=== PATIENT | male | born 1990 | race Caucasian/White ===

== ENCOUNTER 2021-11-07 14:31 | Emergency (ER) | payer SELFPAY ==
[2021-11-07 14:33] VITALS: BP 146/98; PULSE 82; RESP 18; TEMP 36.4; O2SAT 100
[2021-11-07 15:07] LABS: Basophils Absolute Auto 0.1 K/mm3 (0.0-0.1); Basophils Percent Auto 0.7 % (0.2-1.2); Eosinophils Absolute Auto 0.1 K/mm3 (0-0.3); Eosinophils Percent Auto 0.9 % (0-4.4); Hematocrit 49.9 % (42.0-52.0); Hemoglobin 17.2 g/dL (14.0-18.0); Immature Granulocyte Absolute 0.15 K/mm3 (0.00-0.031); Immature Granulocyte Percent A 2.2 % (0-0.5); Lymphocytes Percent Auto 28.3 % (18.3-44.2); Mean Corpuscular HGB Conc 34.5 g/dl (32-36); Mean Corpuscular Hemoglobin 29.6 pg (26-34); Mean Corpuscular Volume 85.9 fl (80-100); Mean Platelet Volume 9.6 fl (7.4-10.4); Monocytes Absolute Auto 0.8 K/mm3 (0.1-0.6); Monocytes Percent Auto 11.2 % (2.6-8.5); Neutrophils Absolute Auto 3.8 K/mm3 (1.3-6.7); Neutrophils Percent Auto 56.7 % (45.5-73.1); Platelet Count Result 232 k/mm3 (150-375); Red Blood Count 5.81 M/mm3 (4.6-6.20); Red Cell Distribution Width 13.2 % (11.5-14.5); White Blood Count 6.7 K/mm3 (4.5-10.0)
--- NOTE | 2021-11-07 15:13 | ED.GENADULT ---
HPI - General Adult General Chief complaint: Abdominal Pain Stated complaint: abd pain Time Seen by Provider: 11/07/21 14:37 History of Present Illness HPI narrative: 30-year-old male presenting the emergency department for evaluation of epigastric pain. Patient states over the last few months he has had intermittent pain similar to this. Patient states Monday he had a few hours of pain that did resolve. Patient states this morning he had recurrence of the pain again. Patient describes an epigastric tightness. Patient states the pain lasted a few hours and then resolved. Patient denies any prior cardiac history. Patient denies any prior history of GI issues. Patient states he has not had any surgeries on his abdomen. Patient reports that he did attempt to take some Tums for this and it was initially helping but has not been helping over the last few days. Related Data Allergies Allergy/AdvReac Type Severity Reaction Status Date / Time No Known Allergies Allergy Verified 11/07/21 14:35 Review of Systems Review of Systems: CONSTITUTIONAL: Denies fever, chills, or sweats. EYES: Denies visual changes, redness, or discharge. ENT: Denies rhinorrhea, congestion, sore throat, or otalgia. CARDIOVASCULAR: Denies chest pain, palpitations, or edema. RESPIRATORY: Denies cough or dyspnea. GASTROINTESTINAL: See HPI GENITOURINARY: Denies dysuria or hematuria. SKIN: Denies rash or itching. MUSCULOSKELETAL: Denies back pain, joint pain, or myalgia. NEUROLOGIC: Denies headache, numbness, or weakness. Exam Narrative: APPEARANCE: Well appearing, no pain, no distress, well-nourished. HEAD: normocephalic, atraumatic. EYES: PERRLA/EOMI, conjunctivae clear. NOSE: Normal no drainage THROAT: Pharynx clear, no exudate. NECK: Supple. No adenopathy, no masses. RESPIRATORY: Airway patent, respirations nonlabored. Clear to auscultation bilaterally, no rales, rhonchi, wheezing. CARDIOVASCULAR: Regular rate and rhythm without murmurs rubs or gallops. ABDOMINAL: Soft, nontender, nondistended, normal bowel sounds. No reproducible epigastric tenderness to palpation MUSCULOSKELETAL: Moves all extremities. Strength/ROM intact, No edema, No calf tenderness. NEURO: Alert. Cranial nerves II through XII intact. Grossly intact SKIN: Warm, dry. Normal Color Course Course Emergency Course: Patient was updated on the results of the work-up. Patient was encouraged of close follow-up with his primary care physician and with GI. All questions and concerns were addressed. Vital Signs Vital signs: Vital Signs Temperature 97.6 F 11/07/21 14:33 Pulse Rate 82 11/07/21 14:33 Respiratory Rate 18 11/07/21 14:33 Blood Pressure 146/98 H 11/07/21 14:33 Pulse Oximetry 100 11/07/21 14:33 Oxygen Delivery Room Air 11/07/21 14:33 Temperature 97.6 F 11/07/21 14:33 Pulse Rate 82 11/07/21 16:35 Respiratory Rate 16 11/07/21 16:35 Blood Pressure 126/83 11/07/21 16:35 Pulse Oximetry 95 11/07/21 16:35 Oxygen Delivery Room Air 11/07/21 14:33 Medical Decision Making Vital Signs Vital Signs: Vital Signs Temperature 97.6 F 11/07/21 14:33 Pulse Rate 82 11/07/21 14:33 Respiratory Rate 18 11/07/21 14:33 Blood Pressure 146/98 H 11/07/21 14:33 Pulse Oximetry 100 11/07/21 14:33 Oxygen Delivery Room Air 11/07/21 14:33 Temperature 97.6 F 11/07/21 14:33 Pulse Rate 82 11/07/21 16:35 Respiratory Rate 16 11/07/21 16:35 Blood Pressure 126/83 11/07/21 16:35 Pulse Oximetry 95 11/07/21 16:35 Oxygen Delivery Room Air 11/07/21 14:33 Lab Data Lab results reviewed: Yes I reviewed the patient's lab results. Result diagrams: 11/07/21 14:48 11/07/21 15:28 Labs: Lab Results 11/07/21 11/07/21 11/07/21 Range/Units 14:48 14:48 15:28 WBC 6.7 (4.5-10.0) K/mm3 RBC 5.81 (4.6-6.20) M/mm3 Hgb 17.2 (14.0-18.0) g/dL Hct 49.9 (42.0-52.0) % MCV 85.9 (80-10
[2021-11-07 15:26] LABS: Lactic Acid Reflex 1.6 mmol/L (0.7-2.0)
[2021-11-07 15:55] LABS: Alanine Aminotransferase 366 U/L (6-50); Albumin Level 4.5 g/dL (3.5-5.1); Alkaline Phosphatase 166 U/L (38-126); Anion Gap 9 mmol/L (8-16); Aspartate Amino Transferase 300 U/L (17-59); Bilirubin,Total 4.3 mg/dL (0.2-1.3); Blood Urea Nitrogen 9 mg/dL (9-20); Calcium 9.7 mg/dL (8.4-10.2); Carbon Dioxide 27 mmol/L (22-30); Chloride 102 mmol/L (98-107); Estimated CRCL calculation 86 ml/min; Estimated Glomerular Filt Rate > 60; Glucose 110 mg/dL (65-110); Lipase 115 U/L (23-300); Potassium 3.7 mmol/L (3.4-5.0); Sodium 138 mmol/L (137-145)
[2021-11-07 16:35] VITALS: BP 126/83; PULSE 82; RESP 16; O2SAT 95
== END 2021-11-07 16:36 | disposition home or self-care (01) ==
PROVIDERS: Emergency Provider Emergency Medicine
DX: R10.13 Epigastric pain (principal)
CPT/HCPCS: 36415; 80053; 83605; 83690; 85025; 99283

== ENCOUNTER 2022-05-19 18:20 | Inpatient (IN) | payer SELFPAY ==
--- NOTE | ~2022-05-19 | MR_ITS ---
EXAMINATION: MR MRCP wo/w con/w 3D wo ind DATE: 05/20/2022 12:17 INDICATION: Gallstone pancreatitis. TECHNIQUE: Magnetic resonance imaging (MRI) of the abdomen was performed without and with 20 mL Multi Jose intravenous contrast. Sequences included coronal T2-weighted FS FSE, coronal T2-weighted FSE, a xial T1-weighted LAVA, coronal FS FIESTA, axial dual-echo T1-weighted SPGR, coronal lava-FLEX, sagitt al T2-weighted FSE, axial T2-weighted FSE, and axial DWI. Thick-slab T2-weighted FSE images were obta ined for magnetic resonance cholangiopancreatography (MRCP). Maximum intensity projection 3-D reconst ructions of the volumetric data were created by the technologist. Postcontrast sequences included cor onal LAVA-flex and time course of axial T1-weighted LAVA. COMPARISON: CT abdomen and pelvis 05/19/2022 FINDINGS: ABDOMEN MRI: There is a 5 mm cyst in the liver. The spleen is normal. The gallbladder is normal in si ze and contains gallstones. There is fat stranding around the pancreas and in the bilateral retroperi toneum, consistent with acute interstitial pancreatitis. The pancreas enhances throughout. The adrena l glands and kidneys are normal. There are no dilated loops of bowel. There are no pathologically enl arged lymph nodes. There is no free intraperitoneal fluid. ABDOMEN MRCP: The common duct is normal and measures 6 mm. No choledocholithiasis. IMPRESSION: 1. No choledocholithiasis. 2. Acute interstitial pancreatitis. 3. Cholelithiasis. Reviewed, dictated and finalized at location A.
--- NOTE | ~2022-05-19 | XR_ITS ---
EXAMINATION: XR cholangiogram surg 1st inj DATE: 05/21/2022 09:32 INDICATION: Laparoscopic cholangiogram TECHNIQUE: 208 fluoroscopic images of the right upper quadrant were obtained during intraoperative ch olangiography performed by the surgeon. I was not present in the operating room. Fluoroscopy exposure time was 29.6. COMPARISON: None. FINDINGS: Fluoroscopic images demonstrate mild enlargement of the common bile duct and mild stricturi ng of the distal common bile duct with slow flow contrast material into the duodenum. No stones are i dentified. Finding likely reflects pancreatic inflammation. IMPRESSION: 1. Mild enlargement of the common bile duct with probable pancreatic inflammatory change resulting in slow flow of contrast from the distal common bile duct. Reviewed, dictated and finalized at location A. IMPRESSION: 1. Mild enlargement of the common bile duct with probable pancreatic inflammato ry change resulting in slow flow of contrast from the distal common bile duct.
--- NOTE | ~2022-05-19 | US_ITS ---
Limited Abdominal Sonogram: Real-time sonographic imaging of the right upper quadrant was performed. Clinical History: Abnormal LFTs Findings: The liver appears normal with no evidence of mass lesion or bile duct dilatation. Main por jaime vein demonstrates normal direction of flow. The gallbladder is partially distended, with probable small echogenic stones. The common bile duct measures 3 mm. The visualized pancreas, aorta, and IVC are unremarkable. Impression: Cholelithiasis. Reviewed, dictated and finalized at location M. Impression: Cholelithiasis.
--- NOTE | ~2022-05-19 | CT_ITS ---
EXAMINATION: CT abdomen pelvis w con INDICATION: Epigastric pain TECHNIQUE: Computed tomographic images of the abdomen and pelvis were obtained after the administrati on of 100 cc of Omnipaque 350 intravenous contrast. The dose-length product (DLP) was 1156.92 mGy-cm. Automated exposure control and iterative reconstruction technique were employed. COMPARISON: None available FINDINGS: Minimal dependent atelectasis is present in the lung bases. The heart size is normal. The l iver, spleen, and adrenal glands are normal. There is a moderate amount of peripancreatic fluid which extends into the anterior pararenal spaces and inferiorly in the retroperitoneum. There is mild wall thickening of the gallbladder. The kidneys are unremarkable. No pathologically enlarged abdominal or pelvic lymph nodes are identified. No free intraperitoneal gas or evidence of bowel obstruction. The re is a tiny umbilical hernia containing fat. IMPRESSION: 1. Acute pancreatitis, likely interstitial edematous, with acute peripancreatic fluid collection. 2. Mild wall thickening of the gallbladder, likely reactive. Reviewed, dictated and finalized at location F.
[2022-05-19 18:59] VITALS: BP 137/94; PULSE 86; RESP 18; TEMP 36.6; O2SAT 98
[2022-05-19 19:34] LABS: Basophils Percent Auto 0.4 % (0.2-1.2); Eosinophils Percent Auto 0.2 % (0-4.4); Hematocrit 54.4 % (42.0-52.0); Hemoglobin 18.1 g/dL (14.0-18.0); Immature Granulocyte Absolute 0.15 K/mm3 (0.00-0.031); Immature Granulocyte Percent A 1.5 % (0-0.5); Lymphocytes Absolute Auto 1.07 K/mm3 (0.9-3.2); Lymphocytes Percent Auto 10.7 % (18.3-44.2); Mean Corpuscular HGB Conc 33.3 g/dl (32-36); Mean Corpuscular Hemoglobin 29.3 pg (26-34); Mean Corpuscular Volume 88.2 fl (80-100); Mean Platelet Volume 9.7 fl (7.4-10.4); Monocytes Absolute Auto 0.8 K/mm3 (0.1-0.6); Monocytes Percent Auto 8.1 % (2.6-8.5); Neutrophils Absolute Auto 7.9 K/mm3 (1.3-6.7); Neutrophils Percent Auto 79.1 % (45.5-73.1); Platelet Count Result 229 k/mm3 (150-375); Red Blood Count 6.17 M/mm3 (4.6-6.20); Red Cell Distribution Width 13.2 % (11.5-14.5)
[2022-05-19 21:24] LABS: Alanine Aminotransferase 519 U/L (6-50); Alkaline Phosphatase 201 U/L (38-126); Anion Gap 12 mmol/L (8-16); Aspartate Amino Transferase 192 U/L (17-59); Blood Urea Nitrogen 9 mg/dL (9-20); Calcium 9.7 mg/dL (8.4-10.2); Carbon Dioxide 25 mmol/L (22-30); Chloride 100 mmol/L (98-107); Estimated CRCL calculation 116 ml/min; Estimated Glomerular Filt Rate > 60; Glucose 92 mg/dL (65-110); Potassium 3.8 mmol/L (3.4-5.0); Sodium 137 mmol/L (137-145)
[2022-05-19 21:34] VITALS: BP 128/83; PULSE 93; RESP 19; O2SAT 97
[2022-05-19 22:25] LABS: Lipase 5080 U/L (23-300)
[2022-05-19] MEDS: SODIUM CHLORIDE 0.9% IV 1,000 ML 999 ML IV CONT (22:49)
[2022-05-19] MEDS: MORPHINE SULFATE (*CRX) 4 MG/ML INJ IV PUSH (22:49)
[2022-05-19] MEDS: ONDANSETRON INJ 4 MG/2 ML VIAL IV PUSH (22:49)
--- NOTE | 2022-05-19 23:15 | ED.ABDPAIN ---
HPI - Abdominal Pain General Chief Complaint: Abdominal Pain Stated Complaint: abd pain Time Seen by Provider: 05/19/22 21:26 Source: patient Mode of arrival: ambulatory Limitations: no limitations History of Present Illness HPI narrative: Patient is a 31-year-old male who presents to the ED with report of epigastric abdominal pain. Patient reports having pain for the last couple of days. He reports having similar pain in the past but states it resolved on its own. Pain does not radiate. He has had nausea and vomiting over the last 2 days. He states he initially feels somewhat better after vomiting, but then the pain returns. He has tried taking Tylenol and acid reflux medications without relief. Denies significant aggravating factors. He did eat yesterday, but denied significant worsening after eating. Has not had anything to eat today. Denies any fever, diarrhea, constipation, urinary symptoms. Related Data Allergies Allergy/AdvReac Type Severity Reaction Status Date / Time No Known Allergies Allergy Verified 11/07/21 14:35 Review of Systems Review of Systems: CONSTITUTIONAL: Denies fever, chills, or sweats. CARDIOVASCULAR: Denies chest pain. RESPIRATORY: Denies dyspnea. GASTROINTESTINAL: See HPI. GENITOURINARY: Denies dysuria or hematuria. All systems reviewed & are unremarkable except as noted in HPI and below PMFSH Past Medical History Medical History (Updated 05/19/22 @ 23:26 by Melina Branch PA-C) No pertinent past medical history Surgical History Surgical History (Updated 05/19/22 @ 23:19 by Melina Branch PA-C) No pertinent past surgical history Social History Social History (Updated 05/19/22 @ 23:46 by Melina Branch PA-C) Smoking status: Never smoker Alcohol intake: current Alcohol use details: occasional - social, last drank 2 weeks ago Substance use: never Exam Narrative: GENERAL: Well appearing, obese, non-toxic, in no acute distress. HEAD: Normocephalic, atraumatic. NECK: Supple. No adenopathy, no masses. RESPIRATORY: Airway patent, respirations nonlabored. Clear to auscultation bilaterally, no rales, rhonchi, wheezing. CARDIOVASCULAR: Regular rate and rhythm without murmurs, rubs, or gallops. Radial pulses 2+ and equal bilaterally. ABDOMINAL: Soft, tenderness to palpation in the epigastric region, periumbilical region, nondistended, no hepatosplenomegaly. Normoactive BS. MUSCULOSKELETAL: Moves all extremities. Strength/ROM intact without gross deformities. SKIN: Warm, dry, normal color. No rashes. NEURO: A&O X3. Speech clear. Cranial nerves II-XII grossly intact. Steady gait. No ataxic movements. PSYCHIATRIC: Appropriate mood and affect. Normal interaction. Course Vital Signs Vital signs: Vital Signs Temperature 97.8 F 05/19/22 18:59 Pulse Rate 86 05/19/22 18:59 Respiratory Rate 18 05/19/22 18:59 Blood Pressure 137/94 H 05/19/22 18:59 Pulse Oximetry 98 05/19/22 18:59 Oxygen Delivery Room Air 05/19/22 18:59 Temperature 97.8 F 05/19/22 18:59 Pulse Rate 103 H 05/19/22 23:28 Respiratory Rate 18 05/19/22 23:28 Blood Pressure 135/83 05/19/22 23:28 Pulse Oximetry 97 05/19/22 23:28 Oxygen Delivery Room Air 05/19/22 18:59 MDM - Abdominal Pain MDM Narrative Medical decision making narrative: Patient presented to ED with 2-day history of epigastric abdominal pain, nausea, vomiting. Patient's vital stable upon arrival. Afebrile. CBC with white blood cell count of 10. Hgb 18.1. Has been similarly elevated in the past. Likely hemoconcentration. Fluids started. CMP with elevated bilirubin, elevated transaminases and alk phos. These do appear to have been elevated in Nov 2021 to similar levels, at which time patient was reporting epigastric pain as well. Lipase at that time was normal. Lipase elevated today to just over 5000. CT scan consistent with acute pancreatitis with peripancreatic fluid collection developing.
[2022-05-19 23:28] VITALS: BP 135/83; PULSE 103; RESP 18; O2SAT 97
--- NOTE | 2022-05-20 00:34 | ADMGEN ---
This patient, Donte Lima, was admitted to 3 [facility] Surg Room 301-01. Patient/family oriented to hospital policies and general routines including ID bracelet, bed and alarms, visiting hours, pain management, procedures, bathroom and other care routines, personal items, smoking policy, room service/diet, and visiting hours. Information on how to activate the Rapid Response Team has been discussed. Patient/Family are encouraged to report perceived risks to care and to ask questions if they do not understand what they are told or what they should do.
[2022-05-20 00:40] VITALS: PULSE 89; RESP 16; O2SAT 96
[2022-05-20 00:48] LABS: Triglycerides 160 mg/dL (<150)
[2022-05-20 01:00] VITALS: BP 123/79; PULSE 89; RESP 16; TEMP 36.4; O2SAT 96; BMI 33.3
[2022-05-20] MEDS: SODIUM CHLORIDE 0.9% IV 1,000 ML 200 ML IV CONT ×4 (01:11→21:39)
[2022-05-20 01:17] LABS: Appearance Urine Clear (Clear); Bacteria Urine None Seen /hpf; Bilirubin Urine 2+ (Negative); Blood Urine Negative (Negative); Color Urine Dark Yellow (Yellow); Glucose Urine UA Negative (Negative); Ketones Urine 4+ mg/dL (Negative); Leukocyte Esterase Ur Trace LEU/UL (Negative); Nitrate Urine Negative (Negative); Non Pathogenic Casts 0-2; Protein Urine Trace mg/dL (Negative); RBC Urine 0-2 /hpf (0-2); Squamous Epithelial Cell Urine None seen /hpf (Few); WBC Urine 0-5 /hpf; pH Urine 5.5 (5.0-9.0)
[2022-05-20 01:46] LABS: Specific Grav Ur 1.055 (1.001-1.035)
[2022-05-20 01:47] LABS: Add Urine Microscopic? YES
[2022-05-20 06:00] VITALS: BP 143/80; PULSE 88; RESP 20; TEMP 35.9; O2SAT 94
[2022-05-20] MEDS: PANTOPRAZOLE SODIUM IV 40 MG VIAL IV PUSH (08:44)
--- NOTE | 2022-05-20 08:44 | WPDGICN ---
Assessment and Plan Assessment and plan (1) Acute pancreatitis: Qualifiers: Acute pancreatitis complication: unspecified Pancreatitis type: unspecified pancreatitis type Qualified Code(s): K85.90 - Acute pancreatitis without necrosis or infection, unspecified Code(s): K85.90 - Acute pancreatitis without necrosis or infection, unspecified Status: Acute Assessment and Plan: Patient with acute pancreatitis. Imaging studies suggest this is interstitial pancreatitis. Ultrasound confirms gallstones which raises the question that this may be the etiology. Plan for conservative management. Patient will initially be NPO with pain control gradually increasing diet is pain and labs improve. Because of elevated LFTs an MRCP will be obtained. Surgery for eventual cholecystectomy is advised. (2) Cholelithiasis: Code(s): K80.20 - Calculus of gallbladder without cholecystitis without obstruction Status: Acute Assessment and Plan: Gallstones identified on ultrasound imaging. Suggest that this may be the etiology for patient's pancreatitis. Will obtain surgery consult. GI Consult Note Consult date/time: 05/20/22 08:44 Reason for consult: Acute pancreatitis. HPI: Donte Lima is a 31 year old male I am asked to see at the request of the hospitalist service because of pancreatitis. Patient reports he developed mid epigastric pain that began on Monday. Because of persistent pain he presented to the emergency room. He has received some pain relief with pain medications. Patient had only mild nausea and vomiting on presentation. Patient has never had pancreatitis before. He admits only occasional social alcohol intake but never to excess. He denies any prior known history of gallstones. Family history is noncontributory. Review of Systems Review of Systems: Review of systems noncontributory. [facility] Past Medical History Medical History (Updated 05/20/22 @ 08:46 by Jb Matthews MD) No pertinent past medical history Surgical History Surgical History (Updated 05/19/22 @ 23:19 by Melina Branch PA-C) No pertinent past surgical history Social History Social History (Updated 05/19/22 @ 23:46 by Melina Branch PA-C) Smoking status: Never smoker Alcohol intake: current Drinks per week: 1 Alcohol use details: occasional - social, last drank 2 weeks ago Substance use: current Lack of Transportation: No Lack of Food: Never True Current Housing: I Have Housing Concerned About Future Housing: No Difficulty Paying Gas/Electric Bills: No Difficulty Paying for Meds: No Currently Unemployed: No Education: High School Diploma/GED Difficulty w/ Childcare or Family Care: No Spiritual care concerns: No Meds Home Medications and Allergies Home Medications Medication Instructions Recorded Confirmed Type omeprazole magnesium 20 mg 20 mg PO DAILY #14 tabs 11/07/21 05/20/22 Rx tablet,delayed release (Prilosec OTC) Allergies Allergy/AdvReac Type Severity Reaction Status Date / Time No Known Allergies Allergy Verified 11/07/21 14:35 Vital Signs Vital Signs - 24 hr 05/19/22 18:59 05/19/22 21:34 05/19/22 23:28 Temperature 97.8 F Pulse Rate 86 93 103 H Respiratory Rate 18 19 18 Blood Pressure 137/94 H 128/83 135/83 Pulse Oximetry 98 97 97 Oxygen Delivery Room Air 05/20/22 01:00 05/20/22 00:40 05/20/22 06:00 Temperature 97.6 F 96.6 F L Pulse Rate 89 89 88 Respiratory Rate 16 16 20 Blood Pressure 123/79 143/80 H Pulse Oximetry 96 96 94 Oxygen Delivery Room Air Exam Narrative: Physical exam reveals patient to be alert. Vital signs stable. HEENT exam is unremarkable. Patient is anicteric. Lungs are clear to auscultation and percussion. Heart is without murmur or extra sounds. Abdomen bowel sounds are present soft only minimal epigastric discomfort noted no organomegaly or m
--- NOTE | 2022-05-20 10:21 | PM.IMHP ---
H&P: HPI History of Present Illness Date/Time: 05/20/22 10:21 Chief Complaint: Abdominal pain Narrative: Donte Lima is a 31 year old male who is being admitted for acute pancreatitis.? Patient reports he developed mid epigastric pain that began on Monday.? Because of persistent pain he presented to the emergency room.? He has received some pain relief with pain medications.? Patient had only mild nausea and vomiting on presentation.? Patient has never had pancreatitis before.? He admits only occasional social alcohol intake but never to excess.? He denies any prior known history of gallstones. LFTs are elevated along with lipase. Review of Systems Review of Systems: CONSTITUTIONAL: Denies fever, chills, or sweats. CARDIOVASCULAR: Denies chest pain. RESPIRATORY: Denies dyspnea. GASTROINTESTINAL: See HPI. GENITOURINARY: Denies dysuria or hematuria. All systems reviewed & are unremarkable except as noted in HPI and below PMFSH Past Medical History Medical History No pertinent past medical history Surgical History Surgical History No pertinent past surgical history Social History Social History Smoking status: Never smoker Alcohol intake: current Drinks per week: 1 Alcohol use details: occasional - social, last drank 2 weeks ago Substance use: current Lack of Transportation: No Lack of Food: Never True Current Housing: I Have Housing Concerned About Future Housing: No Difficulty Paying Gas/Electric Bills: No Difficulty Paying for Meds: No Currently Unemployed: No Education: High School Diploma/GED Difficulty w/ Childcare or Family Care: No Spiritual care concerns: No Meds Home Medications and Allergies Home Medications Medication Instructions Recorded Confirmed Type omeprazole magnesium 20 mg 20 mg PO DAILY #14 tabs 11/07/21 05/20/22 Rx tablet,delayed release (Prilosec OTC) Allergies Allergy/AdvReac Type Severity Reaction Status Date / Time No Known Allergies Allergy Verified 11/07/21 14:35 Vital Signs Vital Signs - 24 hr 05/19/22 18:59 05/19/22 21:34 05/19/22 23:28 Temperature 97.8 F Pulse Rate 86 93 103 H Respiratory Rate 18 19 18 Blood Pressure 137/94 H 128/83 135/83 Pulse Oximetry 98 97 97 Oxygen Delivery Room Air 05/20/22 01:00 05/20/22 00:40 05/20/22 06:00 Temperature 97.6 F 96.6 F L Pulse Rate 89 89 88 Respiratory Rate 16 16 20 Blood Pressure 123/79 143/80 H Pulse Oximetry 96 96 94 Oxygen Delivery Room Air 05/20/22 08:00 Temperature Pulse Rate Respiratory Rate Blood Pressure Pulse Oximetry Oxygen Delivery Room Air Exam Narrative: GENERAL: Well appearing, obese, non-toxic, in no acute distress. HEAD: Normocephalic, atraumatic. NECK: Supple. No adenopathy, no masses. RESPIRATORY: Airway patent, respirations nonlabored. Clear to auscultation bilaterally, no rales, rhonchi, wheezing. CARDIOVASCULAR: Regular rate and rhythm without murmurs, rubs, or gallops. Radial pulses 2+ and equal bilaterally. ABDOMINAL: Soft, tenderness to palpation in the epigastric region, periumbilical region, nondistended, no hepatosplenomegaly. Normoactive BS. MUSCULOSKELETAL: Moves all extremities. Strength/ROM intact without gross deformities. SKIN: Warm, dry, normal color. No rashes. NEURO: A&O X3. Speech clear. Cranial nerves II-XII grossly intact. Steady gait. No ataxic movements. PSYCHIATRIC: Appropriate mood and affect. Normal interaction. H&P: Results Labs Labs: Short CBC 05/19/22 Range/Units 19:07 WBC 10.0 (4.5-10.0) K/mm3 Hgb 18.1 H (14.0-18.0) g/dL Hct 54.4 H (42.0-52.0) % Plt Count 229 (150-375) k/mm3 [facility] 05/19/22 19:07 Sodium 137 Potassium 3.8 Chloride 100 Carbon Dioxide 25 BUN 9 Creatinine 1.00 Glucose 92 C
[2022-05-20 10:23] VITALS: BP 122/81; PULSE 99; RESP 16; TEMP 36.2; O2SAT 95
--- NOTE | 2022-05-20 13:05 | PM.CNGS ---
Assessment and Plan Assessment and plan (1) Cholelithiasis: Code(s): K80.20 - Calculus of gallbladder without cholecystitis without obstruction Status: Acute Assessment and Plan: I have reviewed the CT and MRI and discussed the findings with the patient. He has evidence of acute pancreatitis likely related to gallstones. His MRI shows no evidence of choledocholithiasis. His liver enzymes were elevated but clinically he is already showing signs of improvement. Have discussed that proceeding with laparoscopic cholecystectomy during this hospitalization would be recommended to prevent recurrent episodes of pancreatitis. I would recommend proceeding with laparoscopic cholecystectomy with intraoperative cholangiogram, possible open. Since he is already feeling better and is NPO, could possibly proceed with surgery today or tomorrow depending on OR schedule. I have discussed the procedure, risks, benefits, and alternatives with the patient. Questions were answered. (2) Acute pancreatitis: Qualifiers: Acute pancreatitis complication: unspecified Pancreatitis type: unspecified pancreatitis type Qualified Code(s): K85.90 - Acute pancreatitis without necrosis or infection, unspecified Code(s): K85.90 - Acute pancreatitis without necrosis or infection, unspecified Status: Acute (3) Elevated liver enzymes: Code(s): R74.8 - Abnormal levels of other serum enzymes Status: Acute History of Present Illness Consult details Consult date: 05/20/22 Reason for consult: other (Gallstone pancreatitis) Requesting physician: Jb Matthews MD Narrative: This is a 31-year-old man who presented to the emergency department last night with epigastric abdominal pain that started about 2 days ago. The pain started in the morning 2 days ago, but he does recall eating [place] fried chicken for dinner the night before. He has had some nausea along with it. He denies any fevers or any change in bowel habits. He denies any heavy alcohol use. He has had mild episodes like this in the past but they typically did not last as long. He denies any family history of gallbladder disease. He was found to have evidence of acute pancreatitis and elevated liver enzymes in the emergency department. He was admitted for further treatment. He states that his pain has improved somewhat since being admitted. He has already been seen by GI and MRCP was ordered. Review of Systems Review of Systems: All systems reviewed & are unremarkable except as noted in HPI and below Constitutional: Constitutional: Denies chills and Denies fever(s) Eyes: Eyes: Denies change in vision ENT: Denies hearing loss, Denies neck pain and Denies sore throat Cardiovascular: Cardiovascular: Denies chest pain and Denies dyspnea Respiratory: Respiratory: Denies cough, Denies dyspnea and Denies wheezing Gastrointestinal: Gastrointestinal: Reports as per HPI Genitourinary: Genitourinary: Denies hematuria and Denies dysuria Musculoskeletal: Musculoskeletal: Denies arthralgias, Denies joint swelling and Denies neck pain Allergic/Immunologic: Allergic/Immunologic: Denies wheezing [facility] Past Medical History Medical History No pertinent past medical history Surgical History Surgical History No pertinent past surgical history Social History Social History Smoking status: Never smoker Alcohol intake: current Drinks per week: 1 Alcohol use details: occasional - social, last drank 2 weeks ago Substance use: current Lack of Transportation: No Lack of Food: Never True Current Housing: I Have Housing Concerned About Future Housing: No Difficulty Paying Gas/Electric Bills: No Difficulty Paying for Meds: No Currently Unemployed: No Education: [employer] Sch[employer]
[2022-05-20 18:07] VITALS: BP 119/82; PULSE 122; RESP 18; TEMP 36.4; O2SAT 95
[2022-05-20 22:00] VITALS: BP 137/84; PULSE 113; RESP 16; TEMP 36.8; O2SAT 94
[2022-05-21] VITALS (12 sets, daily range): BP systolic 117–133; BP diastolic 77–97; PULSE 87–112; RESP 14–20; TEMP 36.3–37.4; O2SAT 92–96
[2022-05-21] MEDS: SODIUM CHLORIDE 0.9% IV 1,000 ML 200 ML IV CONT ×2 (01:42→05:46)
[2022-05-21 07:18] LABS: Alanine Aminotransferase 194 U/L (6-50); Albumin Level 3.5 g/dL (3.5-5.1); Alkaline Phosphatase 138 U/L (38-126); Anion Gap 6 mmol/L (8-16); Aspartate Amino Transferase 38 U/L (17-59); Bilirubin,Total 2.1 mg/dL (0.2-1.3); Blood Urea Nitrogen 5 mg/dL (9-20); Calcium 8.1 mg/dL (8.4-10.2); Carbon Dioxide 26 mmol/L (22-30); Chloride 105 mmol/L (98-107); Estimated CRCL calculation 136 ml/min; Estimated Glomerular Filt Rate > 60; Glucose 97 mg/dL (65-110); Potassium 3.7 mmol/L (3.4-5.0); Sodium 137 mmol/L (137-145)
--- NOTE | 2022-05-21 07:55 | WPDHPUPDATE1 ---
History and Physical Update Update Date/Time: 05/21/22 07:55 History and Physical has been reviewed, including an updated exam of the patient. There are NO changes in the patient's condition. Risks, benefits, and alternatives have been discussed and questions answered. Patient agrees to proceed with procedure.
--- NOTE | 2022-05-21 08:04 | PM.IMPN ---
Progress Note: A&P Assessment and Plan (1) Acute pancreatitis: Qualifiers: Acute pancreatitis complication: unspecified Pancreatitis type: unspecified pancreatitis type Qualified Code(s): K85.90 - Acute pancreatitis without necrosis or infection, unspecified Code(s): K85.90 - Acute pancreatitis without necrosis or infection, unspecified Status: Acute Assessment and Plan: Suspect gallstone pancreatitis Appreciate GI consultation, continue NPO, pain control, trend LFTs Surgery consult appreciated, recommending cholecystectomy, in OR 05/21 (2) Cholelithiasis: Code(s): K80.20 - Calculus of gallbladder without cholecystitis without obstruction Status: Acute Plan DVT prophylaxis with SCDs GI prophylaxis with PPI Code status full code Subjective Date/time seen: 05/21/22 08:04 Interval history: 31 year old male who is admitted for acute pancreatitis and take for lap juani 05/21. In OR today 05/21. Review of Systems Review of Systems: ROS unobtainable: Yes other (in OR) Exam Narrative: per surgery team Objective Data Vital Signs Vital Signs: Vital Signs - 24 hr 05/20/22 10:23 05/20/22 18:07 05/20/22 19:43 Temperature 97.1 F L 97.5 F L Pulse Rate 99 122 H Respiratory Rate 16 18 Blood Pressure 122/81 119/82 Pulse Oximetry 95 95 Oxygen Delivery Room Air 05/20/22 22:00 05/21/22 06:00 Temperature 98.2 F 97.4 F L Pulse Rate 113 H 107 H Respiratory Rate 16 14 Blood Pressure 137/84 130/79 Pulse Oximetry 94 92 Oxygen Delivery Intake/Output Intake/Output: Intake & Output 05/18/22 05/19/22 05/20/22 05/21/22 23:59 23:59 23:59 23:59 Intake Total 3540 2330 Balance 3540 2330 Meds/Results Medications: Active Medications Generic Name Dose Route Start Last Admin Trade Name Freq PRN Reason Stop Dose Admin Hydromorphone HCl 1 mg 05/19/22 23:38 Hydromorphone Hcl Inj (*Crx) 1 Mg/Ml Syr IV PUSH Q4H PRN Pain Rated 7-10 Sodium Chloride 1,000 mls @ 200 mls/hr 05/19/22 23:40 05/21/22 05:46 Normal Saline Iv IV CONT 200 mls/hr .Q5H DEXTER Administration Morphine Sulfate 4 mg 05/19/22 23:38 Morphine Sulfate (*Crx) 4 Mg/Ml Inj IV PUSH Q2H PRN Pain Rated 4-6 Ondansetron HCl 4 mg 05/19/22 23:38 Ondansetron Inj 4 Mg/2 Ml Vial IV PUSH Q4H PRN Nausea Pantoprazole Sodium 40 mg 05/20/22 09:00 05/20/22 08:44 Pantoprazole Sodium Iv 40 Mg Vial IV PUSH 40 mg QAM DEXTER Administration Radiology Results: ITS Impressions Abdomen/Pelvis CT 05/19/22 23:02 IMPRESSION: 1. Acute pancreatitis, likely interstitial edematous, with acute peripancreatic fluid collection. 2. Mild wall thickening of the gallbladder, likely reactive. Abdomen Ultrasound 05/20/22 07:56 Impression: Cholelithiasis. MRCP 05/20/22 12:40 IMPRESSION: 1. No choledocholithiasis. 2. Acute interstitial pancreatitis. 3. Cholelithiasis. Labs Labs: Laboratory Results - last 24 hr 05/21/22 05:45 Sodium 137 Potassium 3.7 Chloride 105 Carbon Dioxide 26 Anion Gap 6 L BUN 5 L Creatinine 0.80 Estim Creat Clear Calc 136 Estimated GFR > 60 Glucose 97 Calcium 8.1 L Total Bilirubin 2.1 H AST 38 ALT 194 H Alkaline Phosphatase 138 H Total Protein 6.0 L Albumin 3.5
--- NOTE | 2022-05-21 08:12 | WPDANESEPPF ---
Anes - Initial Pre Proc Eval Procedure: Operation Date: 05/21/22 08:30 Proposed Procedures p Laparoscopic Cholecystectomy with Intra Operative Cholangioagram, Possible Open - Rodolfo Black DO Date/Time: 05/21/22 08:12 Pre Op Diagnosis: acute pancreatitis,transaminitis,hyperbili,gb thic Patient Data Age: 31 Gender: M Height: 1.75 m Weight: 102.2 kg Last Vital Signs Temp 36.3 C L 05/21/22 06:00 Pulse 107 H 05/21/22 06:00 Resp 14 05/21/22 06:00 BP 130/79 05/21/22 06:00 Pulse Ox 92 05/21/22 06:00 O2 Del Method Room Air 05/20/22 19:43 Allergies Allergy/AdvReac Type Severity Reaction Status Date / Time No Known Allergies Allergy Verified 11/07/21 14:35 Home Medications Medication Instructions Recorded Confirmed Type omeprazole magnesium 20 mg 20 mg PO DAILY #14 tabs 11/07/21 05/20/22 Rx tablet,delayed release (Prilosec OTC) Laboratory Tests 05/21/22 05:45 Sodium 137 mmol/L mmol/L (137-145) Potassium 3.7 mmol/L mmol/L (3.4-5.0) Chloride 105 mmol/L mmol/L (98-107) Carbon Dioxide 26 mmol/L mmol/L (22-30) Anion Gap 6 mmol/L L mmol/L (8-16) BUN 5 mg/dL L mg/dL (9-20) Creatinine 0.80 mg/dL mg/dL (0.7-1.3) Estim Creat Clear Calc 136 ml/min ml/min Estimated GFR > 60 (59 - ) Glucose 97 mg/dL mg/dL (65-110) Calcium 8.1 mg/dL L mg/dL (8.4-10.2) Total Bilirubin 2.1 mg/dL H mg/dL (0.2-1.3) AST 38 U/L U/L (17-59) ALT 194 U/L H U/L (6-50) Alkaline Phosphatase 138 U/L H U/L (38-126) Total Protein 6.0 g/dL L g/dL (6.3-8.2) Albumin 3.5 g/dL g/dL (3.5-5.1) Patient hx anesthesia problems: none Family hx anesthesia problems: none Results Review: All pre-operative results and documents have been reviewed as part of the pre-operative evaluation. [facility] Past Medical History Medical History (Updated 05/21/22 @ 08:14 by Josh Becerra MD) Cholelithiasis Obesity Surgical History Surgical History No pertinent past surgical history Social History Social History Smoking status: Never smoker Alcohol intake: current Drinks per week: 1 Alcohol use details: occasional - social, last drank 2 weeks ago Substance use: current Lack of Transportation: No Lack of Food: Never True Current Housing: I Have Housing Concerned About Future Housing: No Difficulty Paying Gas/Electric Bills: No Difficulty Paying for Meds: No Currently Unemployed: No Education: High School Diploma/GED Difficulty w/ Childcare or Family Care: No Spiritual care concerns: No Anes - Eval Final PreProcedure Day of Procedure 05/21/22 08:12 Patient weight: overweight Heart: regular rate and rhythm Lungs: clear to auscultation and normal air movement Airway: Mallampati scale class II Neurological: alert and oriented Last oral intake: >/= 8 hours ASA classification: II Emergent: no Anesthetic plan: proceed Anesthesia type and monitoring: general ETT Results Review: All pre-operative results and documents have been reviewed as part of the pre-operative evaluation. Informed Consent: The patient's anesthetic plan and its attendant risks and benefits were discussed with the patient/family/POA. Questions were solicited and answers provided to the satisfaction of the patient/family/POA.
[2022-05-21] MEDS: ceFAZolin 2 GM/D5W 50 ML 2 GM/50 ML BAG IVPB (08:36)
--- NOTE | 2022-05-21 08:51 | PC.NURSE ---
Called report to pre-op and transported patient down to pre-op at 0810 along with chart and consent.
[2022-05-21] MEDS: BUPIVACAINE/EPINEPHRINE 0.25% 10 ML VIAL 30 ML INFILTRATE (09:25)
--- NOTE | 2022-05-21 09:43 | W.PM.PROC2 ---
Procedure Note - Detailed Date of Procedure 05/21/22 Pre-op Diagnosis acute pancreatitis, cholelithiasis, elevated liver enzymes Post-op Diagnosis Same Procedure Performed Laparoscopic Cholecystectomy with Cholangiogram Surgeon Rodolfo Black, DO Anesthesia General and Local (0.5% bupivacaine) Indications This is a 31-year-old man who presented to the emergency department with epigastric abdominal pain. He was found to have evidence of acute pancreatitis and cholelithiasis. He did not have any history of heavy alcohol use. He was recovering from the pancreatitis and MRCP showed no evidence of choledocholithiasis. Discussions were made with the patient about treatment options and decision was made to proceed with laparoscopic cholecystectomy with intraoperative cholangiogram. Findings Laparoscopic cholecystectomy with cholangiogram was performed. The gallbladder had a few pericholecystic adhesions. The cystic duct appeared normal in size. Intraoperative cholangiogram was performed and no filling defects were identified but the common bile duct appeared very narrowed at the ampulla. Minimal if any contrast was visualized going into the duodenum. The images were sent to radiology interpretation. Gallbladder was then removed and sent to the lab for pathology. Description of Procedure Procedure as well as risks, benefits, and alternatives were discussed with patient. Written consent was obtained and placed in chart prior to procedure. The patient was brought back to surgical suite. Patient was placed in supine position on operating table. Time-out was done to confirm patient and procedure. Patient was then intubated by the anesthesia department. Abdomen was prepped and draped in sterile fashion using chlorhexidine prep. 0.5% bupivacaine with epinephrine was infiltrated at each site of incision. A 5 millimeter incision was made near the umbilicus, and a 5 millimeter Optiview trocar was advanced through the abdominal layers under direct visualization. Once inside the abdominal cavity, carbon dioxide was insufflated to create a pneumoperitoneum. The camera was inserted and the abdomen was inspected. No immediate abnormalities were identified. The patient was placed in reverse Trendelenburg position and rotated slightly to the left. An 11 millimeter incision was made in the subxiphoid region, and an 11 millimeter trocar was inserted under direct visualization. Two 5 millimeter incisions were made in the right upper quadrant, and two 5 millimeter trocars were inserted under direct visualization. The gallbladder was identified and grasped at the fundus and retracted superiorly. It was then grasped at the infundibulum retracted laterally. Careful dissection around the neck of the gallbladder was performed using blunt dissection with a [place] grasper and hook electrocautery. The cystic duct was identified, and a window was created behind it. The cystic artery was also identified and a window was created behind it. The critical view of safety was identified, visualizing the cystic duct running directly into the neck of the gallbladder, and the cystic artery running directly into the wall of the gallbladder. A 5 millimeter clip member certification manager was then used to place 2 clips proximally and 1 clip distally on the cystic artery. It was then transected using endoscopic scissors. The Flores clamp was then placed across the neck of the gallbladder and the Flores cholangiocatheter was advanced into the distal neck of the gallbladder. Bile was able to be aspirated and saline flushed with ease. The patient was then flattened out in bed and intraoperative cholangiogram was obtained using Omnipaque contrast. The images were sent to Radiology for interpretation. The patient was then placed back in reverse Trendelenburg position and a 5 mm Endoclip member certification manager was used to place 2 clips proximally 1 clip distally on the cystic duct. It was then transected using endoscopic scissor
[2022-05-21] MEDS: LACTATED RINGERS 1,000 ML 30 ML IV CONT ×2 (09:49)
--- NOTE | 2022-05-21 10:48 | PC.NURSE ---
Pt returned to room from surgery at 1045, resting comfortable no pain or nausea.
[2022-05-21] MEDS: PANTOPRAZOLE SODIUM IV 40 MG VIAL IV PUSH (11:09)
[2022-05-21] MEDS: LACTATED RINGERS 1,000 ML 100 ML IV CONT (11:10)
--- NOTE | 2022-05-21 16:49 | WPDGIPROGNO ---
Progress Note: A&P Assessment and Plan (1) Gallstone pancreatitis: Code(s): K85.10 - Biliary acute pancreatitis without necrosis or infection Status: Acute Assessment and Plan: s/p lap juani slowly improving diet per surgery (2) Elevated liver enzymes: Code(s): R74.8 - Abnormal levels of other serum enzymes Status: Acute Assessment and Plan: trending down mrcp without bile duct stones (3) Abdominal pain: Code(s): R10.9 - Unspecified abdominal pain Status: Acute Subjective Date/time seen: 05/21/22 16:49 Interval history: s/p lap juani sore from surgery but overall doing ok Review of Systems Review of Systems: All systems reviewed & are unremarkable except as noted in HPI and below Exam Const: General: comfortable and no acute distress HENMT: Face/Nose/Sinus: Normal nares present Eyes: General: appearance normal, both eyes and all related structures Neck: Neck: supple Resp: Effort & Inspection: normal respiratory effort Cardio: Rate: regular rate GI: GI Palp: Yes Soft to palpation and Yes Tenderness to palpation present (GI) (mild ttp from recent surgery) Skin: General skin exam: normal color Neuro: Speech: normal speech Motor exam (neuro): 5/5 motor strength present throughout Extrem: General: normal to inspection Psych: Affect: normal affect Objective Data Vital Signs Vital Signs: Vital Signs - 24 hr 05/20/22 18:07 05/20/22 19:43 05/20/22 22:00 Temperature 97.5 F L 98.2 F Pulse Rate 122 H 113 H Respiratory Rate 18 16 Blood Pressure 119/82 137/84 Pulse Oximetry 95 94 Oxygen Delivery Room Air Oxygen Flow Rate 05/21/22 06:00 05/21/22 08:00 05/21/22 09:49 Temperature 97.4 F L 98.4 F Pulse Rate 107 H 112 H Respiratory Rate 14 18 Blood Pressure 130/79 133/79 Pulse Oximetry 92 96 Oxygen Delivery Room Air Simple Face Mask Oxygen Flow Rate 10 05/21/22 10:00 05/21/22 10:15 05/21/22 10:30 Temperature Pulse Rate 102 H 90 93 Respiratory Rate 20 15 20 Blood Pressure 128/86 125/90 118/79 Pulse Oximetry 94 96 94 Oxygen Delivery Room Air Nasal Cannula Nasal Cannula Oxygen Flow Rate 3 2 05/21/22 10:37 05/21/22 10:50 05/21/22 11:05 Temperature 97.3 F L 97.4 F L Pulse Rate 88 87 87 Respiratory Rate 18 14 14 Blood Pressure 117/78 125/86 129/84 Pulse Oximetry 93 93 93 Oxygen Delivery Nasal Cannula Oxygen Flow Rate 3 05/21/22 11:35 05/21/22 12:35 Temperature 97.7 F 97.6 F Pulse Rate 90 108 H Respiratory Rate 16 16 Blood Pressure 128/87 129/77 Pulse Oximetry 93 93 Oxygen Delivery Oxygen Flow Rate Intake/Output Intake/Output: Intake & Output 05/18/22 05/19/22 05/20/22 05/21/22 23:59 23:59 23:59 23:59 Intake Total 3540 3480 Output Total 1700 Balance 3540 1780 Meds/Results Medications: Active Medications Generic Name Dose Route Start Last Admin Trade Name Freq PRN Reason Stop Dose Admin Hydrocodone Bitart/Acetaminophen 1 tab 05/21/22 10:41 Hydrocodone/Acetaminophen (*Crx) 5-325 Mg Tablet PO Q4H PRN Pain Rated 4-6 Hydrocodone Bitart/Acetaminophen 1 tab 05/21/22 10:41 Hydrocodone/Acetaminophen (*Crx) 7.5-325 Mg Tablet PO Q4H PRN Pain Rated 7-10 Lactated Ringer's 1,000 mls @ 100 mls/hr 05/21/22 10:41 05/21/22 11:10 Lr - Lactated Ringers Iv IV CONT 05/21/22 20:40 100 mls/hr .Q10H ONE Administration Ibuprofen 600 mg 05/21/22 10:41 Ibuprofen 600 Mg Tablet PO Q6H PRN Pain Rated 1-3 Morphine Sulfate 2 mg 05/21/22 10:41 Morphine Sulfate (*Crx) 2 Mg/Ml Inj IV PUSH Q2H PRN Pain Rated 4-6 Morphine Sulfate 4 mg 05/21/22 10:41 Morphine Sulfate (*Crx) 4 Mg/Ml Inj IV PUSH Q2H PRN Pain Rated 7-10 Ondansetron HCl 4 mg 05/21/22 10:41 Ondansetron Inj 4 Mg/2 Ml Vial IV PUSH Q4H PRN Nausea And Vomiting Pantoprazole Sodium 40 mg 05/20/22 09:00 05/21/22 11:09 Pantop
[2022-05-22 04:26] VITALS: BP 117/74; PULSE 100; RESP 18; TEMP 36.6; O2SAT 93
[2022-05-22 06:33] LABS: Hematocrit 41.7 % (42.0-52.0); Hemoglobin 13.8 g/dL (14.0-18.0); Mean Corpuscular HGB Conc 33.1 g/dl (32-36); Mean Corpuscular Hemoglobin 29.9 pg (26-34); Mean Corpuscular Volume 90.3 fl (80-100); Mean Platelet Volume 9.8 fl (7.4-10.4); Platelet Count Result 182 k/mm3 (150-375); Red Blood Count 4.62 M/mm3 (4.6-6.20); Red Cell Distribution Width 13.2 % (11.5-14.5)
[2022-05-22 06:48] LABS: Alanine Aminotransferase 134 U/L (6-50); Albumin Level 3.5 g/dL (3.5-5.1); Alkaline Phosphatase 120 U/L (38-126); Anion Gap 7 mmol/L (8-16); Aspartate Amino Transferase 31 U/L (17-59); Bilirubin,Total 1.2 mg/dL (0.2-1.3); Blood Urea Nitrogen 8 mg/dL (9-20); Calcium 8.5 mg/dL (8.4-10.2); Carbon Dioxide 25 mmol/L (22-30); Chloride 105 mmol/L (98-107); Estimated CRCL calculation 136 ml/min; Estimated Glomerular Filt Rate > 60; Glucose 111 mg/dL (65-110); Potassium 3.7 mmol/L (3.4-5.0); Sodium 137 mmol/L (137-145)
[2022-05-22] MEDS: PANTOPRAZOLE SODIUM IV 40 MG VIAL IV PUSH (08:06)
--- NOTE | 2022-05-22 08:55 | WPDGIPROGNO ---
Progress Note: A&P Assessment and Plan (1) Gallstone pancreatitis: Code(s): K85.10 - Biliary acute pancreatitis without necrosis or infection Status: Acute Assessment and Plan: s/p lap juani liver enzymes trending down, he is feeling better diet per surgery (2) Elevated liver enzymes: Code(s): R74.8 - Abnormal levels of other serum enzymes Status: Acute Assessment and Plan: trending down mrcp without bile duct stones (3) Abdominal pain: Code(s): R10.9 - Unspecified abdominal pain Status: Acute Assessment and Plan: improved Subjective Date/time seen: 05/22/22 08:55 Interval history: less pain, he is comfortable Review of Systems Review of Systems: All systems reviewed & are unremarkable except as noted in HPI and below Exam Const: General: comfortable and no acute distress HENMT: Face/Nose/Sinus: Normal nares present Eyes: General: appearance normal, both eyes and all related structures Neck: Neck: supple Resp: Effort & Inspection: normal respiratory effort Cardio: Rate: regular rate GI: GI Palp: Yes Soft to palpation and Yes Tenderness to palpation present (GI) (mild ttp from recent surgery) Skin: General skin exam: normal color Neuro: Speech: normal speech Motor exam (neuro): 5/5 motor strength present throughout Extrem: General: normal to inspection Psych: Affect: normal affect Objective Data Vital Signs Vital Signs: Vital Signs - 24 hr 05/21/22 09:49 05/21/22 10:00 05/21/22 10:15 Temperature 98.4 F Pulse Rate 112 H 102 H 90 Respiratory Rate 18 20 15 Blood Pressure 133/79 128/86 125/90 Pulse Oximetry 96 94 96 Oxygen Delivery Simple Face Mask Room Air Nasal Cannula Oxygen Flow Rate 10 3 05/21/22 10:30 05/21/22 10:37 05/21/22 10:50 Temperature 97.3 F L Pulse Rate 93 88 87 Respiratory Rate 20 18 14 Blood Pressure 118/79 117/78 125/86 Pulse Oximetry 94 93 93 Oxygen Delivery Nasal Cannula Nasal Cannula Oxygen Flow Rate 2 3 05/21/22 11:05 05/21/22 11:35 05/21/22 12:35 Temperature 97.4 F L 97.7 F 97.6 F Pulse Rate 87 90 108 H Respiratory Rate 14 16 16 Blood Pressure 129/84 128/87 129/77 Pulse Oximetry 93 93 93 Oxygen Delivery Oxygen Flow Rate 05/21/22 16:59 05/21/22 20:26 05/22/22 04:26 Temperature 97.3 F L 99.3 F 97.9 F Pulse Rate 107 H 103 H 100 Respiratory Rate 16 18 18 Blood Pressure 125/97 H 123/86 117/74 Pulse Oximetry 94 93 93 Oxygen Delivery Oxygen Flow Rate Intake/Output Intake/Output: Intake & Output 05/19/22 05/20/22 05/21/22 05/22/22 23:59 23:59 23:59 23:59 Intake Total 3540 3920 300 Output Total 3300 Balance 3540 620 300 Meds/Results Medications: Active Medications Generic Name Dose Route Start Last Admin Trade Name Freq PRN Reason Stop Dose Admin Hydrocodone Bitart/Acetaminophen 1 tab 05/21/22 10:41 Hydrocodone/Acetaminophen (*Crx) 5-325 Mg Tablet PO Q4H PRN Pain Rated 4-6 Hydrocodone Bitart/Acetaminophen 1 tab 05/21/22 10:41 Hydrocodone/Acetaminophen (*Crx) 7.5-325 Mg Tablet PO Q4H PRN Pain Rated 7-10 Ibuprofen 600 mg 05/21/22 10:41 Ibuprofen 600 Mg Tablet PO Q6H PRN Pain Rated 1-3 Morphine Sulfate 2 mg 05/21/22 10:41 Morphine Sulfate (*Crx) 2 Mg/Ml Inj IV PUSH Q2H PRN Pain Rated 4-6 Morphine Sulfate 4 mg 05/21/22 10:41 Morphine Sulfate (*Crx) 4 Mg/Ml Inj IV PUSH Q2H PRN Pain Rated 7-10 Ondansetron HCl 4 mg 05/21/22 10:41 Ondansetron Inj 4 Mg/2 Ml Vial IV PUSH Q4H PRN Nausea And Vomiting Pantoprazole Sodium 40 mg 05/20/22 09:00 05/22/22 08:06 Pantoprazole Sodium Iv 40 Mg Vial IV PUSH 40 mg QAM DEXTER Administration Radiology Results: ITS Impressions Abdomen/Pelvis CT 05/19/22 23:02 IMPRESSION: 1. Acute pancreatitis, likely interstitial edematous, with acute peripancreatic fluid collection. 2. Mild wall thickening of the
[2022-05-22 12:26] VITALS: BP 121/79; PULSE 96; RESP 18; TEMP 36.2; O2SAT 98
--- NOTE | 2022-05-22 14:04 | PM.PNGS ---
Progress Note: A&P Assessment and Plan (1) Cholelithiasis: Code(s): K80.20 - Calculus of gallbladder without cholecystitis without obstruction Status: Acute Assessment and Plan: Doing well on POD#1. Liver enzymes trending down. OK to discharge from surgical standpoint. Discharge instructions discussed with patient. F/U in 2 weeks. (2) Gallstone pancreatitis: Code(s): K85.10 - Biliary acute pancreatitis without necrosis or infection Status: Acute (3) Elevated liver enzymes: Code(s): R74.8 - Abnormal levels of other serum enzymes Status: Acute Subjective Subjective Date/Time Seen: 05/22/22 14:04 Interval history: Feeling better today. Pain controlled. Tolerating low fat diet. Exam GI: Inspection: incision (intact with glue) GI Palp: Yes Soft to palpation and No Guarding due to palpation present (GI) Auscultation: normal bowel sounds Objective Data Vital Signs Vital Signs: Vital Signs - 24 hr 05/21/22 16:59 05/21/22 20:26 05/22/22 04:26 Temperature 36.3 C L 37.4 C 36.6 C Pulse Rate 107 H 103 H 100 Respiratory Rate 16 18 18 Blood Pressure 125/97 H 123/86 117/74 Pulse Oximetry 94 93 93 Oxygen Delivery 05/22/22 08:00 05/22/22 12:26 Temperature 36.2 C L Pulse Rate 96 Respiratory Rate 18 Blood Pressure 121/79 Pulse Oximetry 98 Oxygen Delivery Room Air Intake/Output Intake/Output: Intake & Output 05/19/22 05/20/22 05/21/22 05/22/22 23:59 23:59 23:59 23:59 Intake Total 3540 3920 640 Output Total 3300 Balance 3540 620 640 Meds/Results Medications: Active Medications Generic Name Dose Route Start Last Admin Trade Name Freq PRN Reason Stop Dose Admin Hydrocodone Bitart/Acetaminophen 1 tab 05/21/22 10:41 Hydrocodone/Acetaminophen (*Crx) 5-325 Mg Tablet PO Q4H PRN Pain Rated 4-6 Hydrocodone Bitart/Acetaminophen 1 tab 05/21/22 10:41 Hydrocodone/Acetaminophen (*Crx) 7.5-325 Mg Tablet PO Q4H PRN Pain Rated 7-10 Ibuprofen 600 mg 05/21/22 10:41 Ibuprofen 600 Mg Tablet PO Q6H PRN Pain Rated 1-3 Morphine Sulfate 2 mg 05/21/22 10:41 Morphine Sulfate (*Crx) 2 Mg/Ml Inj IV PUSH Q2H PRN Pain Rated 4-6 Morphine Sulfate 4 mg 05/21/22 10:41 Morphine Sulfate (*Crx) 4 Mg/Ml Inj IV PUSH Q2H PRN Pain Rated 7-10 Ondansetron HCl 4 mg 05/21/22 10:41 Ondansetron Inj 4 Mg/2 Ml Vial IV PUSH Q4H PRN Nausea And Vomiting Pantoprazole Sodium 40 mg 05/20/22 09:00 05/22/22 08:06 Pantoprazole Sodium Iv 40 Mg Vial IV PUSH 40 mg QAM DEXTER Administration Radiology Results: ITS Impressions Abdomen/Pelvis CT 05/19/22 23:02 IMPRESSION: 1. Acute pancreatitis, likely interstitial edematous, with acute peripancreatic fluid collection. 2. Mild wall thickening of the gallbladder, likely reactive. Abdomen Ultrasound 05/20/22 07:56 Impression: Cholelithiasis. MRCP 05/20/22 12:40 IMPRESSION: 1. No choledocholithiasis. 2. Acute interstitial pancreatitis. 3. Cholelithiasis. Cholangiogram,Operative 05/21/22 14:10 IMPRESSION: 1. Mild enlargement of the common bile duct with probable pancreatic inflammatory change resulting in slow flow of contrast from the distal common bile duct. Labs Labs: Laboratory Results - last 24 hr 05/22/22 05/22/22 05:49 05:49 WBC 11.0 H RBC 4.62 Hgb 13.8 L D Hct 41.7 L MCV 90.3 MCH 29.9 MCHC 33.1 RDW 13.2 Plt Count 182 MPV 9.8 Sodium 137 Potassium 3.7 Chloride 105 Carbon Dioxide 25 Anion Gap 7 L BUN 8 L Creatinine 0.80 Estim Creat Clear Calc 136 Estimated GFR > 60 Glucose 111 H Calcium 8.5 Total Bilirubin 1.2 AST 31 ALT 134 H Alkaline Phosphatase 120 Total Protein 6.0 L Albumin 3.5
--- NOTE | 2022-05-22 15:02 | PM.DS ---
DS: Admitting Diagnosis Discharge Date 05/22/22 Admitting Diagnosis Abdominal pain DS: Discharge Diagnosis Discharge Diagnosis (1) Acute pancreatitis: Qualifiers: Acute pancreatitis complication: unspecified Pancreatitis type: unspecified pancreatitis type Qualified Code(s): K85.90 - Acute pancreatitis without necrosis or infection, unspecified Code(s): K85.90 - Acute pancreatitis without necrosis or infection, unspecified Status: Acute Assessment and Plan: Suspect gallstone pancreatitis Appreciate GI consultation, continue NPO, pain control, trend LFTs Surgery consult appreciated, recommending cholecystectomy, in OR 05/21 (2) Cholelithiasis: Code(s): K80.20 - Calculus of gallbladder without cholecystitis without obstruction Status: Acute Plan DVT prophylaxis with SCDs GI prophylaxis with PPI Code status full code DS: Summary Hospital Course Hospital Course: 31 year old male who is admitted for acute pancreatitis and take for lap juani 05/21. GI and General surgery were consulted. Recommended cholecystectomy. Patient discharged on postop day 1 doing well. Follow-up with surgery in 2 weeks. Time Spent with Patient Time attestation: Total time spent providing and/or coordinating discharge services: Exam Narrative: General: No acute distress, alert and oriented per baseline HEENT: Atraumatic, normocephalic, mucous membranes moist CV: Regular rate and rhythm, S1, S2 Lungs: Clear to auscultation bilaterally, no rales or crackles noted, no wheezes, good air entry Abdomen: Soft, nontender, nondistended Extremities: Normal to inspection Skin: No rashes noted, no lesions or wounds seen Psych: Euthymic, normal affect DS: Data Data Completed and Pending Pending studies at discharge: Pending at discharge 05/21/22 09:13 Surgical [PTH] Routine Labs on day of discharge: Labs from last 24 hours 05/22/22 05/22/22 05:49 05:49 WBC 11.0 H RBC 4.62 Hgb 13.8 L D Hct 41.7 L MCV 90.3 MCH 29.9 MCHC 33.1 RDW 13.2 Plt Count 182 MPV 9.8 Sodium 137 Potassium 3.7 Chloride 105 Carbon Dioxide 25 Anion Gap 7 L BUN 8 L Creatinine 0.80 Estim Creat Clear Calc 136 Estimated GFR > 60 Glucose 111 H Calcium 8.5 Total Bilirubin 1.2 AST 31 ALT 134 H Alkaline Phosphatase 120 Total Protein 6.0 L Albumin 3.5 Discharge Plan Discharge Consulting providers: Jb Matthews ; Rodolfo Escobar Discharging Clinician: Teresa Garcia Patient Disposition: Home, Self-Care Activity: other - see discharge instructions Diet: low fat and other - see discharge instructions Wound Care Instructions: incision open to air and other - see discharge instructions Discharge Instructions: DISCHARGE INSTRUCTION SHEET FOR HERNIA, GALLBLADDER AND APPENDIX SURGERIES DR. ESCOBAR PATIENT TO TAKE HOME 1. May shower, no soaking in bath x 2weeks. 2. Call office for: Wound increasingly painful or bleeding Vomiting Fever of greater than 101 degrees 3. If no bowel movement for three days, take 1 oz. (30 ml) Milk of Magnesia or MiraLax 17g 1 to 2 times daily. 4. No heavy lifting > 10-15 pounds x weeks for hernia repairs and 2 weeks for laparoscopic cholecystectomy or appendectomy. 5. No driving for 3 days or while taking narcotic pain medications. 6. Ice to surgical site for 48 hours (30 min on, then 30 min off). 7. Up walking 10-30 minutes three times per day. 8. Resume previous home medications. 9. Follow-up 10-14 days in office for wound check or as previously scheduled. ([id number]) 10. Oral pain medications prescription to be sent to pharmacy. Take Tylenol 500mg every 6 hours and Ibuprofen 600mg every 6 hours for the first 2 days, then as needed. 11. NUTRITION: Start out by drinking fluids and increase your diet
== END 2022-05-22 14:44 | disposition home or self-care (01) | DRG 263 ==
LOC: ANHED 23:28 → ANH3MEDSUR 05-20 00:17
PROVIDERS: Emergency Medicine; Hospitalist; Admitting Provider Internal Medicine; Emergency Provider Physician Assistant; Visit Provider Surgery
PROC: 0FT44ZZ Resection of Gallbladder, Percutaneous Endoscopic Approach (ICD-10-PCS; CPT 47562; principal; 2022-05-21 08:30)
DX: K85.10 Biliary acute pancreatitis without necrosis or infection (principal); K80.20 Calculus of gallbladder without cholecystitis without obstruction
CPT/HCPCS: 36415; 74177; 74183; 74300; 76376; 76705; 80053; 81001; 82248; 83690; 84478; 85025; 85027; 88304; 96374; 96375; 99285; A9577; C9113; G0378; J0131; J0690; J1100; J2250; J2270; J2405; J2704; J3010; J7030; J7120; Q9966; Q9967